=== PATIENT | male | born 1985 | race Two or more races ===

== ENCOUNTER 2022-10-05 23:55 | Inpatient (IN) | payer OTHER ==
[~2022-10-05] VITALS: Ht 180.3 cm; Wt 209.6 kg
--- NOTE | 2022-10-06 00:19 | NUR ---
PACIENTE ALERTA Y ORIENTADO POR ANANTH. REFIERE DESDE LA BRAYAN DE DAJA VOMITOS X 3, DOLOR ABDOMINAL Y DE LEONEL
--- NOTE | 2022-10-06 04:01 | NUR ---
SE LE ORIENTA A PTE SOBRE TRATAMIENTO E INSTRUCCIONES A SEGUIR, EL REFIERE ENTENDER. SE LE COLECTA MUESTRAS, SE CANALIZA Y SE ADMINISTRA MEDICAMENTO IVÁN ORDEN MEDICA
--- NOTE | 2022-10-06 07:48 | NUR ---
SE RECIBE PTE MASCULINO DE 37 YRS ALERTA CONCIENTE Y TRANQUILO EN COMPANIA DE FAMIILIAR. PTE EN KATHERINE CON BARABDA ELEVADA, SE LE OBSERVA CON IVF'S PATENTE Y TAMIKA DE EDEMA/ SE MANTIENE EN CONSULTA CON POR CHOLESISTITIS. SE MANTIENE BAJO OBSERVACION.
== END 2022-10-09 12:34 | disposition home or self-care (01) | DRG 419 ==
LOC: ER 23:55 → SURH 10-06 14:39
PROVIDERS: Surgery; ADMIT Internal Medicine; ATTEND Internal Medicine
PROC: BW40ZZZ Ultrasonography of Abdomen (ICD-10-PCS; 2022-10-06)
PROC: 0FT44ZZ Resection of Gallbladder, Percutaneous Endoscopic Approach (ICD-10-PCS; principal; 2022-10-07 10:00)
DX: K80.10 Calculus of gallbladder with chronic cholecystitis without obstruction (principal); Z20.822 Contact with and (suspected) exposure to COVID-19